=== PATIENT | male | born 1980 | race Caucasian/White ===

== ENCOUNTER → 2017-12-15 | Outpatient (CLI) | payer OTHER ==
[2016-06-06 11:20] VITALS: BP 139/97
--- NOTE | 2017-12-15 10:06 | RAD ---
CT ABDOMEN PELVIS WO CONTRAST dated 12/15/2017 9:40 AM Indication: Pain.LLQ PAIN OFF/ON FOR MONTHS, CONSISTENT FOR THE LAST FEW DAYS. NO CONTRAST PER DOCTOR OFFICE. Comparison: No comparison is available. Technique: Contiguous axial imaging of the abdomen and pelvis performed without the administration of IV or oral contrast. One or more of the following individualized dose reduction techniques were utilized for this examination: 1. Automated exposure control 2. Adjustment of the mA and/or kV according to patient size 3. Use of iterative reconstruction technique Findings: Focal zone of wall thickening and pericolic inflammatory changes near the junction of the descending colon and sigmoid. There is an inflamed appearing diverticulum in the region. No localized perforation or abscess. Colon and small bowel are otherwise unremarkable. The appendix is normal in caliber. No ascites or lymphadenopathy. Solid abdominal viscera not well evaluated in the absence of contrast material. Diffuse low-density of the liver consistent with fatty infiltration. Biliary tree normal in caliber. Gallbladder is unremarkable. Spleen is normal in size. Pancreas, adrenal glands and kidneys are unremarkable. No stone or hydronephrosis. Abdominal aorta normal in caliber. Images of pelvis a nondistended urinary bladder. Prostate gland normal in size. No free fluid or lymphadenopathy. Limited images of lung bases are clear. Heart size within normal limits. No pleural or pericardial effusion. Bone windows show no acute findings. IMPRESSION: 1. Findings consistent with acute diverticulitis involving the descending colon/sigmoid. No localized perforation or abscess. 2. Mild fatty infiltration of the liver. Electronically signed by: Tom Burroughs MD (12/15/2017 10:03 AM) [id number]
== END | disposition home or self-care (01) ==
LOC: CT 09:24
PROVIDERS: ATTEND Physician Assistant Medical
DX: K57.30 Diverticulosis of large intestine without perforation or abscess without bleeding (principal); K76.0 Fatty (change of) liver, not elsewhere classified; Z87.442 Personal history of urinary calculi
CPT/HCPCS: 74176

== ENCOUNTER 2019-12-08 06:51 | Emergency (ER) | payer OTHER ==
[~2019-12-08] VITALS: Ht 172.7 cm; Wt 63.6 kg
[2019-12-08] MEDS ORDERED: IV NORMAL SALINE 1,000ML 1,000 ML IV SCH (07:00)
--- NOTE | 2019-12-08 07:03 | PHYS DOC ---
Past History Past Medical History: Diverticulitis, Kidney Stones Past Medical History MS Past Surgical History: Tonsillectomy Past Surgical History x3 shoulder and knee surgery Smoking: Non-smoker Alcohol Use: Rarely Drug Use: None General Adult EDM: Chief Complaint: left lower abd pain HPI: HPI: Patient is a 39 year old male who presents for evaluation of left lower quadrant abdominal pain that is been progressing over 2 days. Patient states he took some MOM with minimal improvement of symptoms. Patient states this pain is similar to his prior episode of diverticulitis flare 2 years ago. Patient has had some darker stools without was after the milk of magnesia was taken. Patient states he had some fever and chills last night. Patient denied other complaints Review of Systems: Review of Systems: Constitutional: has fever or chills Eyes: Denies change in visual acuity HENT: Denies nasal congestion or sore throat Respiratory: Denies cough or shortness of breath Cardiovascular: Denies chest pain or edema GI: left lower abdominal pain, mild nausea,no vomiting, bloody stools or diarrhea : Denies dysuria Musculoskeletal: Denies back pain or joint pain Integument: Denies rash Neurologic: Denies headache, focal weakness or sensory changes Endocrine: Denies polyuria or polydipsia Lymphatic: Denies swollen glands Psychiatric: Denies depression or anxiety Heart Score: Risk Factors: Risk Factors: DM, Current or recent (<one month) smoker, HTN, HLP, family history of CAD, obesity. Risk Scores: Score 0 - 3: 2.5% MACE over next 6 weeks - Discharge Home Score 4 - 6: 20.3% MACE over next 6 weeks - Admit for Clinical Observation Score 7 - 10: 72.7% MACE over next 6 weeks - Early Invasive Strategies Physical Exam: PE: Constitutional: Well developed, well nourished, moderate acute distress, non- toxic appearance. [] HENT: Normocephalic, atraumatic, bilateral external ears normal, oropharynx moist, no oral exudates, nose normal. [] Eyes: PERRL, EOMI, conjunctiva normal, no discharge. [] Neck: Normal range of motion, no tenderness, supple, no stridor. [] Cardiovascular:Heart rate regular rhythm, no murmur [] Lungs & Thorax: Bilateral breath sounds clear to auscultation [] Abdomen: Bowel sounds normal, soft, left lower abdominal tenderness, no masses, no pulsatile masses. [] Skin: Warm, dry, no erythema, no rash. [] Back: No tenderness, no CVA tenderness. [] Extremities: No tenderness, no cyanosis, no clubbing, ROM intact, no edema. [] Neurologic: Alert and oriented X 3, normal motor function, normal sensory function, no focal deficits noted. [] Psychologic: Affect normal, judgement normal, mood normal. [] Current Patient Data: Labs: Laboratory Tests Test 12/08/19 07:00 12/08/19 07:25 White Blood Count 10.5 x10^3/uL Red Blood Count 4.86 x10^6/uL Hemoglobin 14.9 g/dL Hematocrit 43.8 % Mean Corpuscular Volume 90 fL Mean Corpuscular Hemoglobin 31 pg Mean Corpuscular Hemoglobin Concent 34 g/dL Red Cell Distribution Width 13.1 % Platelet Count 257 x10^3/uL Neutrophils (%) (Auto) 76 % Lymphocytes (%) (Auto) 17 % Monocytes (%) (Auto) 6 % Eosinophils (%) (Auto) 1 % Basophils (%) (Auto) 0 % Neutrophils # (Auto) 8.0 x10^3uL Lymphocytes # (Auto) 1.8 x10^3/uL Monocytes # (Auto) 0.6 x10^3/uL Eosinophils # (Auto) 0.1 x10^3/uL Basophils # (Auto) 0.0 x10^3/uL Sodium Level 135 mmol/L Potassium Level 4.0 mmol/L Chloride Level 99 mmol/L Carbon Dioxide Level 29 mmol/L Anion Gap 7 Blood Urea Nitrogen 15 mg/dL Creatinine 1.2 mg/dL Estimated GFR (Cockcroft-Gault) 66.7 BUN/Creatinine Ratio 13 Glucose Level 101 mg/dL Calcium Level 9.6 mg/dL Total Bilirubin 0.5 mg/dL Aspartate Amino Transf (AST/SGOT) 16 U/L Alanine Aminotransferase (ALT/SGPT) 39 U/L Alkaline Phosphatase 100 U/L Total Protein 7.7 g/dL Albumin 4.0 g/dL Albumin/Globulin Ratio 1.1 Lipase 73 U/L Urine Collection Type Unknown Urine Color Yellow Urine Clarity Clear Urine pH 7.0 Urine Specific [place] 1.020 Urine Protein Neg Urine Glucose (UA) Neg mg/dL Urine Ketones (Stick) Neg mg/dL Urine Blood Trace Urine Nitrite Neg Urine Bilirubin Neg Urine Urobilinogen Dipstick 0.2 mg/dL Urine Leukocyte Esterase Neg Urine RBC 0 /HPF Urine WBC 0 /HPF Urine Squamous Epithelial Cells Occ /LPF Urine Bacteria 0 /HPF Urine Mucus Slight /LPF Current Medications Medications (Trade) Dose Ordered Sig/Keri Route PRN Reason Start Time Stop Time Status Last Admin Dose Admin Sodium Chloride 1,000 ml @ 1,000 mls/hr Q1H IV 12/08/19 07:00 12/08/19 07:59 DC 12/08/19 07:27 Fentanyl Citrate (Fentanyl 2ml Vial) 50 mcg 1X ONCE IVP 12/08/19 07:30 12/08/19 07:31 DC 12/08/19 07:32 Ondansetron HCl (Zofran) 4 mg 1X ONCE IVP 12/08/19 07:30 12/08/19 07:31 DC 12/08/19 07:32 Iohexol (Omnipaque 240 Mg/ml) 50 ml STK-MED ONCE .ROUTE 12/08/19 07:49 12/08/19 07:49 DC Iohexol (Omnipaque 300 Mg/ml) 75 ml 1X ONCE IV 12/08/19 08:15 12/08/19 08:16 Iohexol (Omnipaque 240 Mg/ml) 30 ml 1X ONCE PO 12/08/19 08:15 12/08/19 08:16 EKG: EKG: [] Radiology/Procedures: Radiology/Procedures: [place] [address] IMAGING REPORT Signed PATIENT: KEO CALERO ACCOUNT: [id number] : 1980 LOCATION: ER AGE: 39 SEX: M EXAM STATUS: REG ER ORD. PHYSICIAN: ANNMARIE TAYLOR DO REASON: LLQ pain, hx diverticulitis PROCEDURE: CT ABD PELV W/ORAL&IV CONTRAST Examination: CT ABD PELV W/ORAL IV CONTRAST History: Reason: LLQ pain, hx diverticulitis / Spl. Instructions: drinking 755-855 / History: Comparison/Correlation: 12/15/2017 CT abdomen and pelvis without contrast Findings: Axial images of the abdomen and pelvis were obtained following IV and oral contrast. Sagittal and coronal reformatted images were provided. Visualized lung bases are clear. Liver, spleen, pancreas, and adrenal glands are normal. Gallbladder fossa is normal. Kidneys are unremarkable. No hydronephrosis. Appendix is normal. Significant stranding is present involving the proximal sigmoid colon with circumferential wall thickening at this level. Sigmoid diverticulosis is moderate extent. No abscess collection or extraluminal gas. No ascites or pelvic free fluid. No enlarged abdominal or pelvic lymph nodes. Urinary bladder is unremarkable. No bowel obstruction or extraluminal gas. Bony structures are unremarkable. Bone islands involving the left acetabulum. Impression: Proximal sigmoid colonic wall thickening and stranding compatible with acute diverticulitis. This is at the same level as findings on 12/15/2017 CT exam. Interval follow-up to assess for resolution should be considered as neoplastic process not necessarily excluded. PQRS Compliance Statement: One or more of the following individualized dose reduction techniques were utilized for this examination: 1. Automated exposure control 2. Adjustment of the mA and/or kV according to patient size 3. Use of iterative reconstruction technique Electronically signed by: Don Tee MD (12/08/2019 9:26 AM) [id number] DICTATED AND SIGNED BY: DON TEE MD DATE: 12/08/19925 CC: SHUKRI SCHAFFER; ANNMARIE TAYLOR DO ~ [] Course & Med Decision Making: Course & Med Decision Making Pertinent Labs and Imaging studies reviewed. (See chart for details) 0748 Stable, CT scan abd/pelvis ordered for further assessment. Pt had requested pain medication but has has a ride home. 1000 stable, feeling moderately improved at this time. Patient does have active diverticulitis but is stable for discharge. Prescription for Flagyl, Cipro, [place] and Zofran given. Close follow-up with his family physician recommended. Patient receiving dose of IV Flagyl before discharge. Patient spouse will come pick her up Dragon Disclaimer: Patricia Disclaimer: This electronic medical record was generated, in whole or in part, using a voice recognition dictation system. Departure Departure: Impression: Primary Impression: Diverticulitis large intestine Qualified Codes: K57.32 - Diverticulitis of large intestine without perforation or abscess without bleeding Disposition: HOME/RESIDENCE PRIOR TO ADM Condition: STABLE Referrals: SHUKRI SCHAFFER (PCP) Patient Instructions: Diverticulitis Additional Instructions: [place] diet, drink plenty fluids, take medication as directed, call and see your doctor right away and follow up. Return if worsen, rectal bleeding, fever etc. Scripts Ondansetron Hcl (ZOFRAN) 4 Mg Tablet 1 TAB PO PRN Q6HRS PRN for NAUSEA, #12 TAB Prov: ANNMARIE TAYLOR DO 12/08/19 Hydrocodone Bit/Acetaminophen (NORCO 5-325 TABLET) 1 Each Tablet 1 TAB PO PRN Q6HRS PRN for PAIN, #20 TAB 0 Refills Prov: ANNMARIE TAYLOR DO 12/08/19 Ciprofloxacin Hcl (CIPRO) 500 Mg Tablet 1 TAB PO BID for diverticulitis for 7 Days, #14 TAB 0 Refills Prov: ANNMARIE TAYLOR DO 12/08/19 Metronidazole (FLAGYL) 250 Mg Tablet 1 TAB PO TID for diverticulitis, #21 TAB Prov: ANNMARIE TAYLOR DO 12/08/19 Justification of Admission: Justification of Admission: Justification of Admission Dx: N/A ANNMARIE TAYLOR DO Dec 08, 2019 07:03
[2019-12-08 07:05] VITALS: BP 142/83
[2019-12-08 07:30] LABS: BASO % 0 % (0-3); EOS # 0.1 x10^3/uL (0.0-0.7); EOS % 1 % (0-3); HEMATOCRIT 43.8 % (39.0-53.0); HEMOGLOBIN 14.9 g/dL (13.0-17.5); LYMPH # 1.8 x10^3/uL (1.0-4.8); LYMPH % 17 % (24-48); MEAN CORPUSCULAR HEMOGLOBIN 31 pg (25-35); MEAN CORPUSCULAR HGB CONC 34 g/dL (31-37); MEAN CORPUSCULAR VOLUME 90 fL (79-100); MONO # 0.6 x10^3/uL (0.0-1.1); MONO % 6 % (0-9); NEUT % 76 % (31-73); PLATELET COUNT 257 x10^3/uL (140-400); RED BLOOD COUNT 4.86 x10^6/uL (4.30-5.70); RED CELL DISTRIBUTION WIDTH 13.1 % (11.5-14.5); WHITE BLOOD COUNT 10.5 x10^3/uL (4.0-11.0)
[2019-12-08] MEDS ORDERED: ONDANSETRON PF 4 MG/2 ML VIAL. IVP ONE (07:30)
[2019-12-08 07:45] LABS: CALCIUM 9.6 mg/dL (8.5-10.1); CREATININE 1.2 mg/dL (0.7-1.3); GFR 66.7
[2019-12-08] MEDS ORDERED: IOHEXOL 240 MG/ML 50ML VIAL. ONE (07:49)
[2019-12-08 07:51] LABS: ALBUMIN/GLOBULIN RATIO 1.1 (1.0-1.7); TOTAL BILIRUBIN 0.5 mg/dL (0.2-1.0); TOTAL PROTEIN 7.7 g/dL (6.4-8.2)
[2019-12-08 08:12] LABS: BACTERIA,URINE 0 /HPF (0-FEW); BILIRUBIN,URINE NEG (NEG); CLARITY,URINE CLEAR; COLOR,URINE YELLOW; GLUCOSE,URINE NEG (NEG); NITRITE,URINE NEG (NEG); RBC,URINE 0 /HPF (0-2); SQUAMOUS EPITHELIAL CELL,UR OCC /LPF; UROBILINOGEN,URINE 0.2 mg/dL (0.2 mg/dL); WBC,URINE 0 /HPF (0-4)
[2019-12-08] MEDS ORDERED: IOHEXOL 240 MG/ML 50ML VIAL. PO ONE (08:15)
[2019-12-08] MEDS ORDERED: IOHEXOL 300 MG/ML 75 ML VIAL. IV ONE (08:15)
--- NOTE | 2019-12-08 09:28 | RAD ---
Examination: CT ABD PELV W/ORAL IV CONTRAST History: Reason: LLQ pain, hx diverticulitis / Spl. Instructions: drinking 755-855 / History: Comparison/Correlation: 12/15/2017 CT abdomen and pelvis without contrast Findings: Axial images of the abdomen and pelvis were obtained following IV and oral contrast. Sagittal and coronal reformatted images were provided. Visualized lung bases are clear. Liver, spleen, pancreas, and adrenal glands are normal. Gallbladder fossa is normal. Kidneys are unremarkable. No hydronephrosis. Appendix is normal. Significant stranding is present involving the proximal sigmoid colon with circumferential wall thickening at this level. Sigmoid diverticulosis is moderate extent. No abscess collection or extraluminal gas. No ascites or pelvic free fluid. No enlarged abdominal or pelvic lymph nodes. Urinary bladder is unremarkable. No bowel obstruction or extraluminal gas. Bony structures are unremarkable. Bone islands involving the left acetabulum. Impression: Proximal sigmoid colonic wall thickening and stranding compatible with acute diverticulitis. This is at the same level as findings on 12/15/2017 CT exam. Interval follow-up to assess for resolution should be considered as neoplastic process not necessarily excluded. PQRS Compliance Statement: One or more of the following individualized dose reduction techniques were utilized for this examination: 1. Automated exposure control 2. Adjustment of the mA and/or kV according to patient size 3. Use of iterative reconstruction technique Electronically signed by: Don Mason MD (12/08/2019 9:26 AM) [id number]
[2019-12-08] MEDS ORDERED: metroNIDAZOLE 500 MG TABLET PO ONE (10:00)
[2019-12-08] MEDS ORDERED: HYDR-3165 PO (10:04)
[2019-12-08] MEDS ORDERED: METR250T PO (10:04)
[2019-12-08] MEDS ORDERED: ONDA4TAB7 PO (10:04)
[2019-12-08] MEDS ORDERED: CIPR500T94 PO (10:04)
== END 2019-12-08 10:00 | disposition home or self-care (01) ==
LOC: ER 06:51
DX: K57.32 Diverticulitis of large intestine without perforation or abscess without bleeding (principal); G35 Multiple sclerosis; Z87.442 Personal history of urinary calculi
CPT/HCPCS: 36415; 74177; 80053; 81001; 83690; 85025; 96374; 96375; 96376; 99284; J2405; J3010; J7030; Q9966; Q9967